=== PATIENT | female | born 1960 | race Caucasian/White ===

== ENCOUNTER 2018-08-31 18:25 | Emergency (ER) | payer OTHER ==
[2018-08-31 19:50] VITALS: BP 137/95
[2018-08-31] MEDS ORDERED: NS 0.9% 1000 ML* 1,000 ML IV ONE (20:14)
[2018-08-31] MEDS ORDERED: Ketorolac INJ* 30 MG/ML 1 ML VIAL IV PUSH ONE (20:15)
[2018-08-31] MEDS ORDERED: Ondansetron INJ* 2 MG/ML VIAL IV ONE (20:15)
--- NOTE | 2018-09-01 20:44 | UC ---
Headache HPI - HPI Summary HPI Summary: Pt. is a 58 y.o female who presents to the for a headache that started this morning. Pt. states she has a hx of migraines and h/a today is similar to her previous h/as. Pt. states h/a was note maximal intensity at onset. Pt. states this is note the worst h/a of her life. Denies recent trauma. Pt. denies past medical hx. Associated sxs of N/V. She denies fever, recent illness, vision changes, numbness, tingling or weakness. Sxs are moderate in severity. Lights make sxs worse. Nothing makes sxs better. Pt. has noted taken any OTC analgesics today. - History Of Current Complaint Chief Complaint: UCGI Stated Complaint: headache Time Seen by Provider: 08/31/18 20:04 Hx Obtained From: Patient Pain Intensity: 1 Pain Scale Used: 0-10 Numeric - Allergies/Home Medications Allergies/Adverse Reactions: Allergies Allergy/AdvReac Type Severity Reaction Status Date / Time prochlorperazine Allergy JAW LOCKS Verified 08/31/18 19:51 [From Compazine] ENVIRONMENTAL/SEASONAL Allergy ITCHY Uncoded 08/31/18 19:51 HAYFEVER WATERY EYES PMH/Surg Hx/FS Hx/Imm Hx Previously Healthy: Yes - Surgical History Surgical History: Yes Surgery Procedure, Year, and Place: Appendectomy 01/2013, COLON SURGERY 2015 - Family History Known Family History: Positive: Non-Contributory - Social History Occupation: Unemployed Lives: With Family Alcohol Use: Occasionally Alcohol Amount: 2-3 LIGHT BEERS PER WEEK Substance Use Type: None Smoking Status (MU): Never Smoked Tobacco - Immunization History Most Recent Influenza Vaccination: NONE Most Recent Tetanus Shot: 2006 Most Recent Pneumonia Vaccination: NONE Review of Systems All Other Systems Reviewed And Are Negative: Yes Constitutional: Positive: Negative Skin: Positive: Negative Eyes: Positive: Negative ENT: Positive: Negative Respiratory: Positive: Negative Cardiovascular: Positive: Negative Gastrointestinal: Positive: Vomiting, Nausea Neurovascular: Positive: Negative Musculoskeletal: Positive: Negative Neurological: Positive: Headache Is Patient Immunocompromised?: No Physical Exam Triage Information Reviewed: Yes Appearance: Well-Appearing - Pt. sitting in chair wearing sunglasses when I first walk in room. present. Vital Signs: Initial Vital Signs Temp 99 F 08/31/18 19:47 Pulse 90 08/31/18 19:47 Resp 16 08/31/18 19:47 BP 137/95 08/31/18 19:47 Pulse Ox 99 08/31/18 19:47 Eye Exam: Normal Eyes: Positive: Conjunctiva Clear ENT: Positive: Pharynx normal, TMs normal Neck: Positive: Supple, Nontender Respiratory: Positive: Lungs clear Musculoskeletal Exam: Normal Neurological: Positive: Alert, Muscle Tone Normal Psychological Exam: Normal Skin Exam: Normal Headache Course/Dx - Course Course Of Treatment: Pt. presenting with h/a typical for her migraines. She currently rates pain 3/10. She notes she has had numerous episodes of vomiting today. She is afebrile with stable VS. Overall pt. is very well appearing without neurological deficits. Exam is unremarkable. Pt. was given IV fluids, zofran and toradol with good improvement of her sxs. DC home with . Close f.u with PCP and to return to or go to ER if sxs change or worsen. - Differential Dx/Diagnosis Differential Diagnosis/HQI/PQRI: Epidural Hematoma, Subdural Hematoma, Meningitis, Migraine, Sinus Headache, Subarachnoid Hemorrhage Provider Diagnosis: Cephalgia Discharge - Sign-Out/Discharge Documenting (check all that apply): Patient Departure All imaging exams completed and their final reports reviewed: No Studies - Discharge Plan Condition: Improved Disposition: HOME Patient Education Materials: Migraine Headache (ED) Referrals: Kathleen Arnold MD [Primary Care Provider] - Additional Instructions: Schedule a follow up appointment with your PCP Return to or go to ER if symptoms change or worsen - Billing Disposition and Condition Condition: IMPROVED Disposition: Home
== END 2018-08-31 21:55 | disposition home or self-care (01) ==
LOC: UCEAST 18:25
DX: R51 Headache (principal); R11.2 Nausea with vomiting, unspecified; Z88.8 Allergy status to other drugs, medicaments and biological substances
CPT/HCPCS: 96360; 96374; 96375; 99211; G0463; J1885; J2405